=== PATIENT | male | born 1995 | race American Indian/Alaskan Native ===

== ENCOUNTER 2016-06-22 19:23 | Emergency (ER) | payer OTHER ==
[2016-06-22] MEDS ORDERED: PROVENTIL IH ONE (19:32)
[2016-06-22] MEDS: PROVENTIL IH ONE (19:40)
[2016-06-22 19:42] VITALS: BP 134/92
== END 2016-06-23 00:35 | disposition left against medical advice (07) ==
LOC: ED 19:23
DX: J45.909 Unspecified asthma, uncomplicated (principal); Z53.21 Procedure and treatment not carried out due to patient leaving prior to being seen by health care provider
CPT/HCPCS: 93005; 93010; 94640